=== PATIENT | female | born 1980 | race Asian ===

== ENCOUNTER 2017-08-26 20:24 | Emergency (ER) | payer OTHER ==
[2017-08-26 20:31] VITALS: BP 103/79; PULSE 86; TEMP 98.5; BMI 21.7
--- NOTE | 2017-08-26 21:12 | PDOC ---
History of Present Illness - General History Source: Patient Exam Limitations: No Limitations - History of Present Illness Initial Comments: 08/26/17 21:44 The patient is a 37 year old female with a significant past medical history of endometriosis who presents to the emergency department for evaluation of pelvic pain. The patient reports severe pelvic pain which started at work today. The patient describes the pain as sharp and unbearable, which prompted her to leave work to visit the ED for further evaluation. She reports associated symptoms of nausea and dyspnea secondary to pain. The patient reports this is the first instance of pain occurring prior to her menses. She reports she has not had this level of pain for 2 years. The patient had a gynecological procedure for her endometriosis, a subsequent with , and had her first period on 07/28/17. The patient is expecting the onset of her menses in two days. Of note, the patient reports taking 800mg ibuprofen and 1000mg Tylenol which brought her pain from 20/10 to 10/10. The patient denies chest pain, headache, dizziness fevers, chills, vomiting, diarrhea, and constipation. Allergies: Naproxen sodium Past surgical history: Dilation and curettage. Social history: Alcohol consumption reported. No reported cigarette or drug use. <Elicia Gonzales - Last Filed: 08/26/17 21:50> <Viviana Hurtado - Last Filed: 08/27/17 02:37> - General Chief Complaint: Pain, Acute Stated Complaint: ENDOMETRIOSIS Time Seen by Provider: 08/26/17 20:26 Past History <Elicia Gonzales - Last Filed: 08/26/17 21:50> - Past Medical History Anemia: No Asthma: No Cancer: No Cardiac Disorders: No CVA: No COPD: No CHF: No Dementia: No Diabetes: No GI Disorders: No Disorders: Yes (ENDOMETRIOSIS) Hypercholesterolemia: No Liver Disease: No Seizures: No Thyroid Disease: No - Surgical History Abdominal Surgery: No Appendectomy: No Cardiac Surgery: No Cholecystectomy: No Lung Surgery: No Neurologic Surgery: No Orthopedic Surgery: No - Reproductive History Is Patient Now?: No (#): 1 Para: 1 - Immunization History Immunization Up to Date: No - Suicide/Smoking/Psychosocial Hx Smoking Status: No Smoking History: Never smoked Have you smoked in the past 12 months: No Number of Cigarettes Smoked Daily: 0 Hx Alcohol Use: No Drug/Substance Use Hx: No Substance Use Type: Alcohol Hx Substance Use Treatment: No <Viviana Hurtado - Last Filed: 08/27/17 02:37> - Past Medical History Allergies/Adverse Reactions: Allergies Allergy/AdvReac Type Severity Reaction Status Date / Time naproxen sodium [From Aleve] AdvReac Verified 02/24/15 16:20 Home Medications: Ambulatory Orders Acetaminophen [Tylenol -] 1,000 mg PO ONCE 08/26/17 Ibuprofen 800 mg PO ONCE 08/26/17 Review of Systems - Review of Systems Able to Perform ROS?: Yes Comments:: All systems are reviewed and negative except as noted in the HPI. <Elicia Gonzales - Last Filed: 08/26/17 21:50> *Physical Exam - Vital Signs Last Vital Signs Temp Pulse Resp BP Pulse Ox 98.5 F 86 24 103/79 100 08/26/17 20:25 08/26/17 20:25 08/26/17 20:25 08/26/17 20:25 08/26/17 20:25 <Elicia Gonzales - Last Filed: 08/26/17 21:50> - Vital Signs Last Vital Signs Temp Pulse Resp BP Pulse Ox 98.5 F 86 24 103/79 100 08/26/17 20:25 08/26/17 20:25 08/26/17 20:25 08/26/17 20:25 08/26/17 20:25 - Physical Exam Comments: GENERAL: Adult female, in moderate distress, crying secondary to abdominal pain HEAD: Normal with no signs of trauma. EYES: PERRLA, EOMI, sclera anicteric, conjunctiva clear. ENT: Ears normal, nares patent, oropharynx clear without exudates. Dry mucous membranes. NECK: Normal range of motion, supple without lymphadenopathy, JVD, or masses. LUNGS: Breath sounds equal, clear to auscultation bilaterally. No wheezes, and no crackles. HEART:Regular rate and rhythm, normal S1 and S2 without murmur, rub or gallop. ABDOMEN:.normal bowel sounds. Mild generalized tenderness. No guarding or rebound.No masses No distention. EXTREMITIES: Normal range of motion, no edema. No clubbing or cyanosis. No erythema, or tenderness. NEUROLOGICAL: Cranial nerves II through XII grossly intact. Normal speech. No focal neurological deficits. MUSCULOSKELETAL: Back non-tender to palpation, no CVA tenderness SKIN: Warm, Dry, normal turgor, no rashes or lesions noted. <Viviana Hurtado - Last Filed: 08/27/17 02:37> Progress Note - Progress Note Progress Note: Documentation has been prepared under my direction and personally reviewed by me in its entirety. I attest that this documented accurately reflects all work, treatment, procedures and medical decision making performed by me. <Viviana Hurtado - Last Filed: 08/27/17 02:37> Medical Decision Making - Medical Decision Making As noted above, this 37-year-old woman with a history of endometriosis presents with pelvic pain; although the patient is currently not having vaginal bleeding , her menstrual cycle is due to start within 48 hours. She states that the pain is typical of her endometriosis pain. She had had relief of her severe perimenstrual pelvic pain after laparoscopic fulguration of endometrial implants and D&C by Dr. Fisher 3 years ago. Subsequently, she was and breast fed and had no painful menstrual cycles until today (she had very mild discomfort associated with her first menstrual period post , which was 07/28/17). Although the patient states that she is ALLERGIC to naproxen, she has had Toradol IV in the past with no adverse reaction. She states that Toradol has been effective for her endometriosis pain in the past. Also, because she has nausea, Zofran IV will be administered. Patient had marked relief in her pain after Toradol 30 mg IV and Zofran 4 mg IV. 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 She should return to the emergency room if she has any recurrence of severe pain <Viviana Hurtado - Last Filed: 08/27/17 02:37> *DC/Admit/Observation/Transfer - Attestations Scribe Attestion: Documentation prepared by Elicia Gonzales, acting as medical dir for Viviana Hurtado MD. <Elicia Gonzales - Last Filed: 08/26/17 21:50> <Viviana Hurtado - Last Filed: 08/27/17 02:37> Diagnosis at time of Disposition: Endometriosis - Discharge Dispostion Disposition: HOME Condition at time of disposition: Stable - Referrals Referrals: Johny Fisher MD [Staff Physician] - 24 hours - Patient Instructions Printed Discharge Instructions: Endometriosis Additional Instructions: Acetaminophen/ibuprofen as needed See Dr. Fisher tomorrow as planned Return to ER if you have severe, persistent pain
[2017-08-26 21:49] LABS: PH,URINE 6.5 (4.5-8); URINE APPEARANCE Clear; URINE BILIRUBIN Negative (NEGATIVE); URINE GLUCOSE (UA) Negative (NEGATIVE); URINE KETONE 1+ (NEGATIVE); URINE LEUK ESTERASE Negative (NEGATIVE); URINE NITRITE Negative (NEGATIVE); URINE PROTEIN Negative (NEGATIVE); URINE UROBILINOGEN 0.2 (0.2-1.0)
[2017-08-26 21:50] LABS: URINE COLOR YELLOW
[2017-08-26 21:55] LABS: HCG,QUALITATIVE URINE Negative
[2017-08-26] MEDS ORDERED: ONDANSETRON 4 MG/2 ML VIAL IVPUSH ONE (22:00)
[2017-08-26] MEDS ORDERED: KETOROLAC TROMETHAMINE 30 MG/1 ML VIAL IVPUSH ONE (22:00)
[2017-08-26] MEDS ORDERED: KETOROLAC TROMETHAMINE 30 MG/1 ML VIAL ONE (22:03)
[2017-08-26] MEDS ORDERED: ONDANSETRON 4 MG/2 ML VIAL ONE (22:03)
== END 2017-08-26 23:32 | disposition home or self-care (01) ==
LOC: FER 20:24
PROC: 3E0333Z Introduction of Anti-inflammatory into Peripheral Vein, Percutaneous Approach (ICD-10-PCS; principal; 2017-08-26)
PROC: 3E033GC Introduction of Other Therapeutic Substance into Peripheral Vein, Percutaneous Approach (ICD-10-PCS; 2017-08-26)
DX: N80.9 Endometriosis, unspecified (principal)
CPT/HCPCS: 81003; 84703; 99282-25

== ENCOUNTER 2021-03-25 00:21 | Emergency (ER) | payer BC, OTHER ==
[2021-03-25 01:14] VITALS: PULSE 60; BMI 22.4
[2021-03-25] MEDS ORDERED: KETOROLAC TROMETHAMINE 30 MG/1 ML VIAL IVPUSH ONE (02:24)
[2021-03-25] MEDS ORDERED: SODIUM CHLORIDE 1,000 ML IV ONE (02:24)
[2021-03-25] MEDS ORDERED: KETOROLAC TROMETHAMINE 30 MG/1 ML VIAL ONE (02:40)
[2021-03-25 03:19] VITALS: BP 112/64; TEMP 97.4
[2021-03-25 03:44] LABS: PH,URINE 6.5 (5.0-8.0); URINE APPEARANCE CLEAR; URINE BILIRUBIN NEGATIVE (NEGATIVE); URINE COLOR YELLOW; URINE GLUCOSE (UA) NEGATIVE (NEGATIVE); URINE KETONE NEGATIVE (NEGATIVE); URINE LEUK ESTERASE NEGATIVE (NEGATIVE); URINE NITRITE NEGATIVE (NEGATIVE); URINE PROTEIN NEGATIVE (NEGATIVE); URINE UROBILINOGEN 0.2 mg/dL (0.2-1.0)
== END 2021-03-25 05:31 | disposition home or self-care (01) ==
LOC: JER 00:21
PROC: 3E033GC Introduction of Other Therapeutic Substance into Peripheral Vein, Percutaneous Approach (ICD-10-PCS; principal; 2021-03-25)
DX: N80.9 Endometriosis, unspecified (principal)
CPT/HCPCS: 76830-TC; 81003; 84703; 87086; 99284-25

== ENCOUNTER 2021-12-16 12:05 | Emergency (ER) | payer BC ==
[2021-12-16 12:56] VITALS: BP 123/76; PULSE 84; RESP 18; TEMP 98; BMI 21.7
[2021-12-16] MEDS ORDERED: KETOROLAC TROMETHAMINE 30 MG/1 ML VIAL IM ONE (14:07)
[2021-12-16] MEDS ORDERED: KETOROLAC TROMETHAMINE 30 MG/1 ML VIAL ONE (15:26)
[2021-12-16 16:14] LABS: PH,URINE 6.5 (5.0-8.0); URINE APPEARANCE CLEAR; URINE BILIRUBIN NEGATIVE (NEGATIVE); URINE COLOR YELLOW; URINE GLUCOSE (UA) NEGATIVE (NEGATIVE); URINE KETONE TRACE (NEGATIVE); URINE LEUK ESTERASE NEGATIVE (NEGATIVE); URINE NITRITE NEGATIVE (NEGATIVE); URINE PROTEIN NEGATIVE (NEGATIVE)
[2021-12-16 16:28] LABS: BASO % 0.9 % (0-2.0); EOS % 1.5 % (0-4.5); HEMATOCRIT 38.8 % (32.4-45.2); HEMOGLOBIN 13.1 GM/dL (10.7-15.3); LYMPH % 25.6 % (8-40); MCH 30.1 pg (25.7-33.7); MCHC 33.8 g/dl (32.0-36.0); MEAN PLT VOLUME 8.4 fl (7.5-11.1); MONO % 9.8 % (3.8-10.2); NEUT % 62.2 % (42.8-82.8); PLATELET COUNT 367 10^3/uL (134-434); RBC 4.36 M/mm3 (3.60-5.2); RDW 13.9 % (11.6-15.6); WHITE BLOOD COUNT 9.1 K/mm3 (4.0-10.0)
[2021-12-16 19:59] LABS: CALCIUM 9.9 mg/dL (8.5-10.1)
[2021-12-16 20:00] LABS: BLOOD UREA NITROGEN 11.2 mg/dL (7-18)
[2021-12-16 20:03] LABS: CREATININE 0.7 mg/dL (0.55-1.3)
[2021-12-16 20:04] LABS: BILIRUBIN,TOTAL 0.2 mg/dL (0.2-1)
[2021-12-16 20:07] LABS: TOT PROT 7.8 g/dl (6.4-8.2)
== END 2021-12-16 16:30 | disposition left against medical advice (07) ==
LOC: JER 12:05
PROC: 3E0233Z Introduction of Anti-inflammatory into Muscle, Percutaneous Approach (ICD-10-PCS; principal; 2021-12-16)
DX: R10.31 Right lower quadrant pain (principal)
CPT/HCPCS: 36415; 80053; 81003; 83690; 84703; 85025; 87077; 87086; 99284-25